=== PATIENT | male | born 1990 | race African-American/Black ===

== ENCOUNTER 2019-11-05 01:19 | Emergency (ER) | payer MEDICAID ==
[~2019-11-05] VITALS: Ht 177.8 cm; Wt 65.0 kg
[2019-11-05] MEDS ORDERED: SODIUM CHLORIDE 0.9% 1,000 ML IV ONE (01:43)
[2019-11-05] MEDS ORDERED: METHYLPREDNISOLONE SOD SUCC 125 MG/2 ML VIAL IV STA (01:43)
[2019-11-05] MEDS ORDERED: MAGNESIUM 2 G PREMIX 50 ML IV ONE (01:45)
[2019-11-05] MEDS ORDERED: ALBUTEROL 6.7GM HFA INHALER INH ONE (01:45)
[2019-11-05 02:25] LABS: BG BASE EXCESS -3.9 mmol/L (-2.0-2.0); BG CARBOXYHEMOGLOBIN 0.4 % (0.5-1.5); BG DEOXYHEMOGLOBIN 7.2 % (0.0-5.0); BG FRACTION INSPIRED OXYGEN 21; BG HCO3 ACT 22.2 mmol/L (22.0-26.0); BG METHEMOGLOBIN 0.4 % (0.0-1.5); BG OXYGEN SATURATION 92.7 % (92.0-98.5); BG PCO2 43.8 mmHg (35.0-45.0); BG PH 7.322 (7.350-7.450); BG PO2 74.1 mmHg (75.0-100.0); BG SAMPLE SITE RIGHT BRACHIAL; BG TOTAL HEMOGLOBIN 15.5 g/dL (12.0-18.0); BG VENT MODE ROOM AIR
[2019-11-05 02:39] LABS: CHLORIDE 109 mEq/L (98-107)
[2019-11-05 02:43] LABS: ETHANOL BLOOD 212 mg/dL
[2019-11-05 02:48] LABS: BASOPHILS % 0.9 % (0.0-2.0); EOSINOPHILS % 6.5 % (0.0-5.0); LYMPHOCYTES % 20.1 % (20.0-50.0); MEAN CORPUSCULAR HEMOGLOBIN 31.5 pg (28.0-32.0); MEAN CORPUSCULAR VOLUME 90.7 fL (80.0-94.0); MEAN PLATELET VOLUME 8.9 fl (7.4-10.4); MONOCYTES % 5.2 % (2.0-8.0); NEUTROPHILS % 67.3 % (40.0-76.0); PLATELET 227 x1000/uL (130-400); RED BLOOD CELL COUNT 5.07 mill/uL (4.7-6.1); RED CELL DISTRIBUTION WIDTH 13.6 % (11.6-14.6)
[2019-11-05] MEDS ORDERED: SODIUM CHLORIDE 0.9% 1,000 ML IV SCH (06:37)
[2019-11-05] MEDS ORDERED: LORAZEPAM 2MG/ML CPJ IV PRN (06:45)
[2019-11-05] MEDS ORDERED: MAGNESIUM/ALUMINUM HYDROXIDE/SIMETHICONE 30ML UDC PO PRN (06:45)
[2019-11-05] MEDS ORDERED: DOCUSATE SODIUM 100MG CAPSULE PO PRN (06:45)
[2019-11-05] MEDS ORDERED: NITROGLYCERIN 0.4MG TABLET SL SL PRN (06:45)
[2019-11-05] MEDS ORDERED: ONDANSETRON HCL 4MG/2ML INJ IV PRN (06:45)
[2019-11-05] MEDS ORDERED: IPRATROPIUM/ALBUTEROL 0.5-3(2.5)MG/3ML NEB NEB PRN (06:45)
[2019-11-05] MEDS ORDERED: GUAIFENESIN 200MG/10ML SUGAR FREE UDC PO PRN (06:45)
[2019-11-05] MEDS ORDERED: ACETAMINOPHEN 325MG TABLET PO PRN ×2 (06:45)
[2019-11-05] MEDS ORDERED: CLONIDINE 0.1MG TABLET PO PRN (06:45)
[2019-11-05] MEDS ORDERED: KETOROLAC 15MG/ML VIAL IV PRN (06:45)
[2019-11-05] MEDS ORDERED: METHYLPREDNISOLONE SOD SUCC 125 MG/2 ML VIAL IV SCH (07:00)
[2019-11-05] MEDS ORDERED: MVI, ADULT NO.1 10 ML, FOLIC ACID 1 MG, THIAMINE HCL 100 MG in SODIUM CHLORIDE 0.9% 1,0... IV NR ×4 (08:00)
[2019-11-05] MEDS ORDERED: ZINC SULFATE 220 MG ( 50 ) CAPSULE PO SCH (09:00)
[2019-11-05] MEDS ORDERED: FAMOTIDINE 20MG TABLET PO SCH (09:00)
[2019-11-05] MEDS ORDERED: GUAIFENESIN/DM 600MG/30MG ER TAB 12HR PO SCH (09:00)
[2019-11-05] MEDS ORDERED: ASCORBIC ACID 500 MG TABLET PO SCH (09:00)
[2019-11-05] MEDS: IPRATROPIUM/ALBUTEROL 0.5-3(2.5)MG/3ML NEB HHN SCH ×2 (10:29→10:45)
[2019-11-05] MEDS ORDERED: ALBUTEROL 6.7GM HFA INHALER ORI PRN (10:30)
[2019-11-05 12:07] VITALS: BP 113/79
[2019-11-05] MEDS ORDERED: ZOLPIDEM TARTRATE 5MG TABLET PO PRN (21:00)
== END 2019-11-05 12:51 | disposition left against medical advice (07) ==
LOC: ER 01:19 → CANBEDREQ 12:50 → ER 12:51
DX: Z03.818 Encounter for observation for suspected exposure to other biological agents ruled out (principal); J45.902 Unspecified asthma with status asthmaticus
CPT/HCPCS: 36415; 36600; 71045; 80053; 80320; 82375; 82805; 83036; 83605; 85025; 87040; 93005; 94640; 96365; 96366; 96368; 96375; 96376; 99291; C9803; J1885; J2930; J3411; J3475; J3490; J7030; U0003; Z7610; G0480

== ENCOUNTER 2020-03-22 07:34 | Emergency (ER) | payer MEDICAID ==
[~2020-03-22] VITALS: Ht 177.8 cm; Wt 79.0 kg
[2020-03-22 08:29] LABS: BASOPHILS % 0.6 % (0.0-2.0); EOSINOPHILS % 5.2 % (0.0-5.0); HEMATOCRIT. 41.1 % (42.0-52.0); HEMOGLOBIN. 13.8 g/dL (14.0-18.0); MEAN CORPUSCULAR HEMOGLOBIN 29.9 pg (28.0-32.0); MEAN CORPUSCULAR VOLUME 89.2 fL (80.0-94.0); MEAN PLATELET VOLUME 8.9 fl (7.4-10.4); MONOCYTES % 4.9 % (2.0-8.0); NEUTROPHILS % 71.3 % (40.0-76.0); PLATELET 267 x1000/uL (130-400); RED BLOOD CELL COUNT 4.61 mill/uL (4.7-6.1); RED CELL DISTRIBUTION WIDTH 13.5 % (11.6-14.6)
[2020-03-22 08:32] LABS: CHLORIDE 106 mEq/L (98-107)
[2020-03-22 08:36] LABS: ETHANOL BLOOD < 10 mg/dL
[2020-03-22] MEDS ORDERED: ACETAMINOPHEN WITH CODEINE 300/30MG TABLET PO ONE (08:45)
[2020-03-22 08:59] LABS: CLARITY URINE CLEAR (CLEAR); COLOR URINE YELLOW (YELLOW); KETONES URINE TRACE (NEGATIVE); LEUKOCYTE ESTERASE URINE NEGATIVE (NEGATIVE); NITRITE URINE NEGATIVE (NEGATIVE); OCCULT BLOOD URINE NEGATIVE (NEGATIVE); PROTEIN URINE TRACE (NEGATIVE); SPECIFIC GRAVITY URINE 1.042 (1.005-1.030)
[2020-03-22 09:09] LABS: *AMPHETAMINES SCREEN URINE NEGATIVE (NEGATIVE); *BARBITURATES SCREEN URINE NEGATIVE (NEGATIVE); *BENZODIAZEPINES SCREEN URINE NEGATIVE (NEGATIVE); *COCAINE SCREEN URINE NEGATIVE (NEGATIVE); METHADONE URINE SCREEN NEGATIVE (NEGATIVE); OPIATES URINE SCREEN NEGATIVE (NEGATIVE)
[2020-03-22 09:11] LABS: CANNABINOID URINE SCREEN PRESUMTIVE POSITIVE (NEGATIVE); PHENCYCLIDINE URINE SCREEN NEGATIVE (NEGATIVE)
[2020-03-22 12:35] VITALS: BP 112/78
== END 2020-03-22 12:54 | disposition home or self-care (01) ==
LOC: ER 07:34
DX: R56.9 Unspecified convulsions (principal); R51.9 Headache, unspecified; J45.909 Unspecified asthma, uncomplicated; H54.7 Unspecified visual loss; Z86.73 Personal history of transient ischemic attack (TIA), and cerebral infarction without residual deficits
CPT/HCPCS: 36415; 80053; 80305; 80320; 81003; 82962; 85025; 93005; 99285; G0480

== ENCOUNTER 2022-03-30 16:12 | Emergency (ER) | payer MEDICAID ==
[~2022-03-30] VITALS: Ht 177.8 cm; Wt 75.0 kg
[2022-03-30] MEDS ORDERED: KETOROLAC 15MG/ML VIAL IV ONE (21:45)
[2022-03-30] MEDS ORDERED: CEFAZOLIN 1000MG PREMIX 50 ML IV ONE (21:45)
[2022-03-30] MEDS ORDERED: KETOROLAC 30MG/ML VIAL IM ONE (22:00)
[2022-03-30] MEDS ORDERED: CEFTRIAXONE SODIUM 1 G/VIAL IM ONE (22:00)
[2022-03-30 22:17] VITALS: BP 139/87
[2022-03-30] MEDS ORDERED: CEPH500T MT (22:46)
[2022-03-30] MEDS ORDERED: IBUP-2029 MT (22:46)
== END 2022-03-30 22:59 | disposition home or self-care (01) ==
LOC: ER 16:30
DX: L03.011 Cellulitis of right finger (principal); J45.909 Unspecified asthma, uncomplicated; I25.2 Old myocardial infarction; Z98.890 Other specified postprocedural states; Z86.73 Personal history of transient ischemic attack (TIA), and cerebral infarction without residual deficits
CPT/HCPCS: 73120; 96372; 99284; J0696; J1885

== ENCOUNTER 2022-04-30 06:43 | Inpatient (IN) | payer MEDICAID, OTHER ==
[~2022-04-30] VITALS: Ht 177.8 cm; Wt 85.0 kg
[~2022-04-30 06:43] MED LIST: CEPH500T MT; IBUP-2029 MT
[2022-04-30] MEDS ORDERED: METHYLPREDNISOLONE SOD SUCC 125 MG/2 ML VIAL IV STA (06:53)
[2022-04-30] MEDS ORDERED: IPRATROPIUM BROMIDE (0.02%) 0.5MG/2.5ML NEB HHN STA (06:53)
[2022-04-30] MEDS ORDERED: ALBUTEROL (0.083%) 2.5MG/3ML NEB HHN STA (06:53)
[2022-04-30] MEDS ORDERED: MAGNESIUM 2 G PREMIX 50 ML IV STA (06:57)
[2022-04-30] MEDS ORDERED: SODIUM CHLORIDE 0.9% 1,000 ML IV ONE (07:00)
[2022-04-30] MEDS ORDERED: LORAZEPAM 2MG/ML CPJ IV ONE (07:00)
[2022-04-30 08:00] LABS: BASOPHILS % 0.7 % (0.0-2.0); EOSINOPHILS % 13.5 % (0.0-5.0); HEMATOCRIT. 42.8 % (42.0-52.0); HEMOGLOBIN. 14.3 g/dL (14.0-18.0); LYMPHOCYTES % 39.8 % (20.0-50.0); MEAN CORPUSCULAR HEMOGLOBIN 30.9 pg (28.0-32.0); MEAN CORPUSCULAR VOLUME 92.3 fL (80.0-94.0); MEAN PLATELET VOLUME 9.3 fl (7.4-10.4); MONOCYTES % 8.6 % (2.0-8.0); NEUTROPHILS % 37.4 % (40.0-76.0); PLATELET 257 x1000/uL (130-400); RED BLOOD CELL COUNT 4.63 mill/uL (4.7-6.1); RED CELL DISTRIBUTION WIDTH 14.6 % (11.6-14.6)
[2022-04-30 11:07] LABS: CHLORIDE 107 mEq/L (98-107)
[2022-04-30 11:16] LABS: ETHANOL BLOOD < 10 mg/dL
[2022-04-30] MEDS ORDERED: LORAZEPAM 0.5MG TABLET PO PRN (14:45)
[2022-04-30] MEDS ORDERED: BENZONATATE 100MG CAPSULE PO PRN (14:45)
[2022-04-30] MEDS ORDERED: DOCUSATE SODIUM 100MG CAPSULE PO PRN (14:45)
[2022-04-30] MEDS ORDERED: ACETAMINOPHEN 325MG TABLET PO PRN ×2 (14:45)
[2022-04-30] MEDS ORDERED: HYDROCODONE/ACETAMINOPHEN 5/325MG TABLET PO PRN (14:45)
[2022-04-30] MEDS ORDERED: NALOXONE HCL 0.4MG/ML VIAL IV PRN (14:45)
[2022-04-30] MEDS ORDERED: IPRATROPIUM/ALBUTEROL 0.5-3(2.5)MG/3ML NEB HHN PRN (14:45)
[2022-04-30] MEDS ORDERED: CLONIDINE 0.1MG TABLET PO PRN (14:45)
[2022-04-30] MEDS ORDERED: ONDANSETRON HCL 4MG/2ML INJ IV PRN (14:45)
[2022-04-30] MEDS: METHYLPREDNISOLONE SOD SUCC 40 MG/ML VIAL IV SCH ×2 (17:01→22:16)
[2022-04-30] MEDS: GUAIFENESIN 600MG ER TABLET PO SCH (20:57)
[2022-05-01] MEDS: METHYLPREDNISOLONE SOD SUCC 40 MG/ML VIAL IV SCH (06:23)
[2022-05-01 08:30] LABS: HEMATOCRIT. 43.2 % (42.0-52.0); HEMOGLOBIN. 14.3 g/dL (14.0-18.0); MEAN CORPUSCULAR HEMOGLOBIN 30.9 pg (28.0-32.0); MEAN CORPUSCULAR VOLUME 93.4 fL (80.0-94.0); MEAN PLATELET VOLUME 9.8 fl (7.4-10.4); PLATELET 255 x1000/uL (130-400); RED BLOOD CELL COUNT 4.63 mill/uL (4.7-6.1); RED CELL DISTRIBUTION WIDTH 14.8 % (11.6-14.6)
[2022-05-01 08:36] LABS: CHLORIDE 105 mEq/L (98-107)
[2022-05-01] MEDS: GUAIFENESIN 600MG ER TABLET PO SCH ×2 (09:00→09:14)
[2022-05-01 09:25] LABS: PLATELET ESTIMATE NORMAL
[2022-05-01 09:55] VITALS: BP 135/81
[2022-05-01] MEDS ORDERED: ALBU18HF2 IH (11:03)
[2022-05-01] MEDS ORDERED: FAMO20TA8 MT (11:03)
[2022-05-01] MEDS ORDERED: FLUT1DIS2 INH (11:03)
[2022-05-01] MEDS ORDERED: MED4 MT (11:03)
[2022-05-01] MEDS ORDERED: IPRA3AMP9 NEB (11:03)
== END 2022-05-01 11:53 | disposition left against medical advice (07) | DRG 133 ==
LOC: ER 06:43 → MICUSO 08:33 → EDBEDREQTM 08:35 → EDBEDREQ 08:35 → EDBEDREQSVC 08:35 → MICUSO 05-01 11:55
PROVIDERS: ADMIT Internal Medicine; ATTEND Internal Medicine
DX: J96.01 Acute respiratory failure with hypoxia (principal); D72.10 Eosinophilia, unspecified; Z86.74 Personal history of sudden cardiac arrest; J45.901 Unspecified asthma with (acute) exacerbation; F17.210 Nicotine dependence, cigarettes, uncomplicated; I69.30 Unspecified sequelae of cerebral infarction; Z82.49 Family history of ischemic heart disease and other diseases of the circulatory system; Z20.822 Contact with and (suspected) exposure to COVID-19; Z53.29 Procedure and treatment not carried out because of patient's decision for other reasons
CPT/HCPCS: 36415; 71045; 80048; 80053; 80320; 83880; 84484; 85025; 87426; 93005; 99291; J2060; J2920; J2930; J3475; J7030; G0480